=== PATIENT | female | born 1955 | race Caucasian/White ===

== ENCOUNTER 2017-04-09 11:35 | Emergency (ER) | payer BC, OTHER ==
[~2017-04-09] VITALS: Ht 160 cm; Wt 70.0 kg
[~2017-04-09 11:35] MED LIST: ARIM1TAB PO; BACT800T5 PO; CEPH500C3 PO; LORA0.5T PO; PRED20 PO; RANI150 PO
[2017-04-09 11:37] VITALS: BP 150/92; PULSE 92; RESP 20; TEMP 98.7; O2SAT 96
--- NOTE | 2017-04-09 12:21 | PD ---
HPI Chief Complaint: Complaint Time Seen by Provider: 11:58 Travel History International Travel<30 days: No Contact w/Intl Traveler<30days: No Traveled to known affect area: No History of Present Illness HPI This is a 61-year-old female who presents to the emergency department with right sided flank pain that's been going on for 2 days, constant, moderate severity, unable to find any position of comfort, associated with some urinary frequency. She denies any dysuria or hematuria. She says she's had kidney stones in the past. She denies any fevers or chills. She denies any pleuritic pain or shortness of breath. She denies any back pain. She does have a history of breast cancer which is currently in remission. PFSH Past Medical History Cancer: Yes (breast cancer) Cardiovascular Problems: No Chemotherapy: Yes Diabetes: No Diminished Hearing: No Endocrine: No Gastrointestinal Disorders: No Genitourinary: No Hepatitis: No Hiatal Hernia: No Hypertension: No Immune Disorder: No Musculoskeletal: Yes (RA) Neurologic: No Psychiatric: Yes (CLAUSTRAPHOBIA) Reproductive: No Respiratory: No Radiation Therapy: Yes Thyroid Disease: No Tetanus Vaccination: Unknown Influenza Vaccination: No Menopausal: Yes : 2 Para: 2 Miscarriage: 0 : 0 Past Surgical History AICD: No Joint Replacement: No Pacemaker: No Thoracic Surgery: Yes (BILAT MASTECTOMY, PORT PLACEMENT AND REMOVAL ) Other Surgery: Yes Social History Alcohol Use: No Tobacco Use: No Substance Use: No Allergies-Medications (Allergen,Severity, Reaction): Coded Allergies: Doxycycline (Verified Allergy, Severe, TACHYCARDIA, FLUSHING, 04/09/17) Hydrocodone (Verified Allergy, Intermediate, Flushing, 04/09/17) Augmentin (Verified Adverse Reaction, Severe, FLUSHED FACE, 04/09/17) Bactrim (Verified Adverse Reaction, Unknown, skin redness, 04/09/17) Uncoded Allergies: athambutol (Allergy, Intermediate, 04/09/17) Reported Meds & Prescriptions Reported Meds & Active Scripts Active Review of Systems Except as stated in HPI: all other systems reviewed are Neg Physical Exam Narrative GENERAL:Well appearing, no acute distress SKIN: Focused skin assessment warm and dry. HEAD: Atraumatic. Normocephalic. EYES: Pupils equal and round. No injection or drainage. ENT: Moist mucous membranes NECK: Trachea midline. CARDIOVASCULAR: Regular rate and rhythm. No murmur appreciated. RESPIRATORY: Clear to auscultation. Breath sounds equal bilaterally. GASTROINTESTINAL: Abdomen soft, non-tender, nondistended. : Right CVA tenderness. MUSCULOSKELETAL: No obvious deformities. NEUROLOGICAL: Awake and alert. No obvious cranial nerve deficits. Moving all extremities. PSYCHIATRIC: Appropriate mood and affect; insight and judgment normal. Data Data Last Documented VS Vital Signs Date Time Temp Pulse Resp B/P Pulse Ox O2 Delivery O2 Flow Rate FiO2 04/09/17 11:37 98.7 92 20 150/92 96 Room Air Orders Complete Blood Count With Diff (04/09/17 12:05) Comprehensive Metabolic Panel (04/09/17 12:05) Urinalysis - C+S If Indicated (04/09/17 12:05) Ct Abd/Pel W/O Iv Contrast (04/09/17 ) ^ Insert Iv (04/09/17 12:05) Labs Laboratory Tests Test 04/09/17 04/09/17 11:55 12:14 Urine Color LIGHT-YELLOW Urine Turbidity CLEAR Urine pH 5.5 Urine Specific [place] 1.005 Urine Protein NEG mg/dL Urine Glucose (UA) NEG mg/dL Urine Ketones NEG mg/dL Urine Occult Blood SMALL Urine Nitrite NEG Urine Bilirubin NEG Urine Urobilinogen LESS THAN 2.0 MG/DL Urine Leukocyte Esterase NEG Urine RBC 2 /hpf Urine WBC LESS THAN 1 /hpf Microscopic Urinalysis Comment CULT NOT INDICATED White Blood Count 8.3 TH/MM3 Red Blood Count 4.10 MIL/MM3 Hemoglobin 12.2 GM/DL Hematocrit 35.7 % Mean Corpuscular Volume 87.1 FL Mean Corpuscular Hemoglobin 29.8 PG Mean Corpuscular Hemoglobin 34.2 % Concent Red Cell Distribution Width 14.3 % Platelet Count 224 TH/MM3 Mean Platelet Volume 8.8 FL Neutrophils (%) (Auto) 70.8 % Lymphocytes (%) (Auto) 19.5 % Monocytes (%) (Auto) 7.5 % Eosinophils (%) (Auto) 1.4 % Basophils (%) (Auto) 0.8 % Neutrophils # (Auto) 5.8 TH/MM3 Lymphocytes # (Auto) 1.6 TH/MM3 Monocytes # (Auto) 0.6 TH/MM3 Eosinophils # (Auto) 0.1 TH/MM3 Basophils # (Auto) 0.1 TH/MM3 CBC Comment DIFF FINAL Differential Comment Sodium Level 138 MEQ/L Potassium Level 3.6 MEQ/L Chloride Level 104 MEQ/L Carbon Dioxide Level 25.9 MEQ/L Anion Gap 8 MEQ/L Blood Urea Nitrogen 18 MG/DL Creatinine 0.94 MG/DL Estimat Glomerular Filtration 61 ML/MIN Rate Random Glucose 90 MG/DL Calcium Level 9.2 MG/DL Total Bilirubin 0.5 MG/DL Aspartate Amino Transf 17 U/L (AST/SGOT) Alanine Aminotransferase 30 U/L (ALT/SGPT) Alkaline Phosphatase 73 U/L Total Protein 8.2 GM/DL Albumin 4.2 GM/DL MDM Medical Decision Making Medical Screen Exam Complete: Yes Emergency Medical Condition: Yes Interpretation(s) Afebrile, mild tachycardia, hypertensive No leukocytosis Electrolytes are reassuring Urinalysis is negative for infection Differential Diagnosis Nephrolithiasis, pyelonephritis, metastatic disease, shingles Narrative Course This is a 61-year-old female who has a history of breast cancer who presents to the emergency department with right flank pain going on for several days. She is very well-appearing. Labs were obtained which are unremarkable. Urinalysis demonstrates no infection. CT abdomen and pelvis was obtained which demonstrates a 1.9 cm exophytic mass on the right kidney. I am not convinced that this is what causing her pain but given her history of breast cancer I don' t think we can't ignore it. I discussed with the patient that she likely needs an outpatient MRI. She will follow up with Dr. Jennings as soon as possible. Diagnosis Primary Impression: Mass of right kidney Patient Instructions: General Instructions Additional Instructions: If you develop severe or worsening abdominal pain, fever>100.4, persistent vomiting or inability to eat or drink return to the emergency department immediately. Follow up with Dr. Jennings as soon as possible. Med/Other Pt SpecificInfo: Prescription(s) given Scripts Tramadol 50 Mg Tab50 Mg PO Q6H PRN (PAIN) #10 TAB Prov:Suyapa Aviles MD 04/09/17 Disposition: 01 DISCHARGE HOME Condition: Stable Suyapa Aviles MD Apr 09, 2017 12:21
[2017-04-09 12:25] LABS: BLOOD, URINE SMALL (NEG); GLUCOSE,URINE NEG (NEG); KETONE, URINE NEG (NEG); NITRITE,URINE NEG (NEG); PH, URINE 5.5 (5.0-8.5); URINE COLOR LIGHT-YELLOW (YELLW/STRAW)
[2017-04-09 12:26] LABS: AUTOMATED NEUTROPHIL # 5.8 TH/MM3 (1.8-7.7); BASOPHIL # 0.1 TH/MM3 (0-0.2); BASOPHIL % 0.8 % (0.0-2.0); EOSINOPHIL # 0.1 TH/MM3 (0-0.4); EOSINOPHIL % 1.4 % (0.0-4.0); HEMATOCRIT 35.7 % (35.0-46.0); HEMO FLAGS DIFF FINAL; LYMPH % 19.5 % (9.0-44.0); LYMPHOCYTE # 1.6 TH/MM3 (1.0-4.8); MEAN CELL VOLUME 87.1 FL (80.0-100.0); MEAN CORPUSCULAR HEMOGLOBIN 29.8 PG (27.0-34.0); MEAN CORPUSCULAR HGB CONC 34.2 % (32.0-36.0); MONO % 7.5 % (0.0-8.0); NEUT % 70.8 % (16.0-70.0); PLATELET COUNT 224 TH/MM3 (150-450); RED CELL DISTRIBUTION WIDTH 14.3 % (11.6-17.2); WHITE BLOOD COUNT 8.3 TH/MM3 (4.0-11.0)
[2017-04-09 12:26] LABS: COMMENT (UR) CULT NOT INDICATED; CULTURE IF INDICATED CULT NOT INDICATED
[2017-04-09 12:46] LABS: ALT (GPT) 30 U/L (10-53); ANION GAP 8 MEQ/L (5-15); AST (GOT) 17 U/L (15-37); BICARBONATE 25.9 MEQ/L (21.0-32.0); BLOOD UREA NITROGEN 18 MG/DL (7-18); CHLORIDE 104 MEQ/L (98-107); GLOMERULAR FILTRATION RATE 61 ML/MIN (>89); POTASSIUM 3.6 MEQ/L (3.5-5.1); SODIUM (NA) 138 MEQ/L (136-145)
[2017-04-09 12:48] LABS: ALKALINE PHOSPHATASE 73 U/L (45-117); TOTAL BILIRUBIN ADULT 0.5 MG/DL (0.2-1.0)
--- NOTE | 2017-04-09 13:57 | RADRPT ---
EXAM DATE/TIME: 04/09/2017 13:09 [facility] COMPARISON: No previous studies available for comparison. INDICATIONS : Right flank pain, history breast ca.Urine frequency. ORAL CONTRAST: No oral contrast ingested. RADIATION DOSE: 13.30 CTDIvol (mGy) MEDICAL HISTORY : Carcinoma, breast. Radtherapy, chemo. SURGICAL HISTORY : Mastectomy, bilateral. ENCOUNTER: Initial ACUITY: 2 days PAIN SCALE: 6/10 LOCATION: Right flank TECHNIQUE: Volumetric scanning of the abdomen and pelvis was performed. Using automated exposure control and ad justment of the mA and/or kV according to patient size, radiation dose was kept as low as reasonably achievable to obtain optimal diagnostic quality images. DICOM format image data is available electro nically for review and comparison. FINDINGS: No renal calculi or obstructive uropathy. There is a 1.9 cm thick mass off the lower pole right kidne y which is not clearly a cyst. Cannot exclude a solid neoplasm. Recommend further evaluation with MRI of the abdomen with and without contrast. On the left side no renal or ureteral calculi are identified. There is a faint low attenuation area i n upper pole left kidney, probably a complex cyst measuring up to about 2 cm in diameter. Lung bases are clear. No significant abnormality in the liver, spleen, adrenals or pancreas. No calci fied gallstones or biliary ductal dilatation. No free fluid. No bowel obstruction. No adenopathy within the abdomen and pelvis. Mild scoliosis. CONCLUSION: 1. 1.9 cm exophytic mass of lower pole right kidney. Further evaluation with MRI of the abdomen recom mended with and without contrast. Possible cyst upper pole left kidney. This could also be evaluated with MRI. No obstructive uropathy or hydronephrosis. 2. No acute findings within the remainder of the abdomen and pelvis. Specifically no obstruction, gini e fluid. No adenopathy. Appendix is normal. Justin Fontenot MD on April 09, 2017 at 13:45 Board Certified Radiologist. This report was verified electronically.
[2017-04-09] MEDS ORDERED: TRAM50TA PO (14:10)
== END 2017-04-09 14:22 | disposition home or self-care (01) ==
LOC: NEPD 11:35
DX: N28.89 Other specified disorders of kidney and ureter (principal); R10.9 Unspecified abdominal pain; R35.0 Frequency of micturition; Z87.442 Personal history of urinary calculi; Z85.3 Personal history of malignant neoplasm of breast; Z87.39 Personal history of other diseases of the musculoskeletal system and connective tissue
CPT/HCPCS: 74176; 80053; 81001; 85025